=== PATIENT | female | born 1950 | race Caucasian/White ===

== ENCOUNTER → 2017-04-30 | Outpatient (CLI) | payer OTHER, MEDICARE ==
[~2017-04-30] MED LIST: ALPR0.25 PO; ANAS1TAB PO; CALC-451 PO; CHOL2000 PO; PANT20TA2 PO; PANT40TA3 PO; SIMV40TA PO
== END | disposition home or self-care (01) ==
LOC: CARD 09:44
PROVIDERS: ATTEND Family Medicine
DX: I49.3 Ventricular premature depolarization (principal); R94.31 Abnormal electrocardiogram [ECG] [EKG]
CPT/HCPCS: 93017; 93350